=== PATIENT | male | born 1970 | race Caucasian/White ===

== ENCOUNTER 2021-07-09 23:02 | Emergency (ER) | payer SELFPAY ==
--- OUTSIDE RECORDS SUMMARY | 2021-07-09 23:06 | XMS REPORT | Continuity of Care Document ---
:1970 Author Organization [facility] t Address [address] [place] [address] Care Team Providers Name Role Phone Cassandra Estrada Attending Clinician Unavailable Cassandra Estrada Attending Clinician Unavailable Cassandra Estrada Admitting Clinician Unavailable Problems This patient has no known problems. Allergies, Adverse Reactions, Alerts Allergy Allergy Status Severity Reaction(s) Onset Inactive Treating Comm ents Source Name Type Date Date Clinician No Known Drug Active [facility] No Known Drug [facility] No Known [facility] No Known [facility] No Known [facility] No Known Drug [facility] No Known Drug Active [facility] No Known Drug Active [facility] Medications This patient has no known medications. Vital Signs Vital Name Observation Time Observation Value Comments Source Weight Dosing 2019-06-12 21:35:08 Height/Length Measured 2019-06-12 21:31:25 Weight Dosing 2019-06-12 21:28:49 Weight Dosing 2019-06-12 21:17:51 Height/Length Dosing 2019-06-12 21:17:51 Weight Dosing 2021-06-09 08:48:00 68 kg Height/Length Measured 2021-06-09 08:48:00 152.4 cm Height/Length Dosing 2021-06-09 08:48:00 172.72 cm Height/Length Measured 2021-06-09 08:45:29 152.4 cm Height/Length Dosing 2021-06-09 08:45:29 172.72 cm Weight Dosing 2021-06-09 08:45:29 68 kg Height/Length Measured 2021-06-09 08:44:27 152.4 cm Height/Length Dosing 2021-06-09 08:44:27 172.72 cm Weight Dosing 2021-06-09 08:44:27 68 kg Height/Length Measured 2021-06-09 08:44:07 152.4 cm Height/Length Dosing 2021-06-09 08:44:07 172.72 cm Weight Dosing 2021-06-09 08:44:07 68 kg Height/Length Measured 2021-06-09 08:43:39 152.4 cm Height/Length Dosing 2021-06-09 08:43:39 172.72 cm Weight Dosing 2021-06-09 08:43:39 68 kg Height/Length Measured 2021-06-09 08:43:25 152.4 cm Height/Length Dosing 2021-06-09 08:43:25 172.72 cm Weight Dosing 2021-06-09 08:43:25 68 kg Height/Length Measured 2021-06-09 08:43:24 152.4 cm Height/Length Dosing 2021-06-09 08:43:24 172.72 cm Weight Dosing 2021-06-09 08:43:24 68 kg Height/Length Measured 2021-06-09 08:42:54 152.4 cm Height/Length Dosing 2021-06-09 08:42:54 172.72 cm Weight Dosing 2021-06-09 08:42:54 68 kg Height/Length Measured 2021-06-09 08:42:51 152.4 cm Height/Length Dosing 2021-06-09 08:42:51 172.72 cm Weight Dosing 2021-06-09 08:42:51 68 kg Height/Length Measured 2021-06-09 08:42:49 152.4 cm Height/Length Dosing 2021-06-09 08:42:49 172.72 cm Weight Dosing 2021-06-09 08:42:49 68 kg Procedures This patient has no known procedures. Encounters Start End Encounter Admission Attending Care Care Encounter Source Date/Time Date/Time Type Type Clinicians Facility Department ID 2019-06-12 Inpatient 1 Torey Estrada [facility] [id number] 16:23:00 Torey Estrada [id number] 1 [facility] 2019-06-12 2019-06-12 Emergency [facility] [id number] 16:23:00 16:23:00 [facility] Results Test Description Test Time Test Comments Results Result Comments Source HEMOGLOBIN A1c 2021-06-24 07:00:49 Test Item Value Reference Range Interpretation Comme nts HEMOGLOBIN A1c (test code = 83296) 5.3 % 4.2-5.6 CBC W/AUTO DIFF WITH [id number] 06:38:05 Test Item Value Reference Range Interpretation Comments WBC (test code = 7.8 K/UL 3.5-11.0 1001) RBC (test code = 5.05 M/UL 4.50-6.10 1002) HEMOGLOBIN (test code 14.9 G/DL 13.5-17.0 = 1003) HEMATOCRIT (test code 44.6 % 40.0-51.0 = 1004) MCV (test code = 88.3 fL 80.0-99.0 1005) MCH (test code = 29.5 PG 25.0-33.0 1006) MCHC (test code = 33.4 G/DL 31.0-36.0 1007) RDW (test code = 13.0 % 11.5-15.0 1038) NEUTROPHILS (test 54.7 % code = 1008) LYMPHOCYTES (test 35.6 % code = 1010) MONOCYTES (test code 6.3 % = 1011) EOSINOPHILS (test 2.6 % code = 1012) BASOPHILS (test code 0.5 % = 1013) IMMATURE GRANULOCYTES 0.3 % (test code = 1036) NUCLEATED RBCS (test 0.0 /100 See_Comment [Autom ated code = 1065) WBC'S message] The sy stem which generated this result transmitted reference range : 0.0. The refere nce range was not u sed to interpret th is result as normal/abnormal . PLATELET COUNT (test 234 K/UL 130-400 code = 1015) ABSOLUTE NEUTROPHILS 4.25 K/UL 1.50-7.50 (test code = 1066) ABSOLUTE LYMPHOCYTES 2.77 K/UL 1.00-4.00 (test code = 1067) ABSOLUTE MONOCYTES 0.49 K/UL 0.20-1.00 (test code = 1068) ABSOLUTE EOSINOPHILS 0.20 K/UL 0.00-0.50 (test code = 1040) ABSOLUTE BASOPHILS 0.04 K/UL 0.00-0.20 (test code = 1069) ABS IMMATURE 0.02 K/UL 0.00-0.10 GRANULOCYTES (test code = 1020) ABS NUCLEATED RBCS 0.00 K/UL 0.00-0.11 (test code = 91538) COMPREHENSIVE METABOLIC [id number] 05:26:09 Test Item Value Reference Range Interpretation Comments GLUCOSE (test code = 72 MG/DL 70-99 2216) BUN (test code = 13 MG/DL 6-20 2207) CREATININE (test 0.78 MG/DL 0.80-1.40 L code = 2214) eGFR (2020 CKD-EPI) 107 >60 (test code = 00262) ML/MIN/1.73 CALC BUN/CREAT (test 17 RATIO 6-28 code = 2235) SODIUM (test code = 144 MEQ/L 441-804 4227) POTASSIUM (test code 4.0 MEQ/L 3.5-5.4 = 8) CHLORIDE (test code 105 MEQ/L 95-107 = 2215) CARBON DIOXIDE (test 26 MEQ/L 19-31 code = 2206) CALCIUM (test code = 9.8 MG/DL 8.5-10.5 2208) PROTEIN, TOTAL (test 7.3 G/DL 6.1-8.3 code = 2229) ALBUMIN (test code = 4.6 G/DL 3.5-5.2 2200) CALC GLOBULIN (test 2.7 G/DL 1.9-3.7 code = 2240) CALC A/G RATIO (test 1.7 RATIO 1.0-2.6 code = 2234) BILIRUBIN, TOTAL 0.3 MG/DL See_Comment [Automated message] (test code = 2207) The syste m which generated this result transmit david reference range : <=1.2. The refe rence range was not u sed to interpret th is result as normal/abnormal . ALKALINE PHOSPHATASE 69 U/L 40-121 (test code = 2204) AST (test code = 20 U/L 9-50 2217) ALT (test code = 17 U/L 5-50 2218) LIPID [id number] 05:26:09 Test Item Value Reference Range Interpretation Comments CHOLESTEROL (test 241 MG/DL <200 H code = 2210) TRIGLYCERIDES (test 88 MG/DL <150 code = 2232) HDL CHOLESTEROL (test 45 MG/DL >39 code = 2220) CALC LDL CHOL (test 176 MG/DL <100 H NOTE: C ALCULATED LDL code = 2237) IS BASED ON IJEOMA-LUKE METHOD WHICHINCLUDES ADJUSTABLE TRIGLYCERIDE:VL DL CHOLESTEROL RAT IO.THIS FACTOR VARIES B Y MEASURED TRIGLY CERIDE AND NON-HDLCHOL ESTEROL CONCENTRATIONS WITH INCREASED CALCU LATED LDL SEENIN HIGH ER TRIGLYCERIDE OR LOWER NON-HDL SPECIME NS. FOR MOREINFORMATION , SEE CLIENT ANNOUNCE MENT AT [email or web address] RISK RATIO LDL/HDL 3.91 RATIO <3.55 H UN LESS (test code = 2238) OTHERWISE INDICATED, ALL TESTING PER [facility], [place] [facility] [place] [address] LABORATORY DIRE CTOR: BARAK MENDEZ M.D. CLIA NUMBER [id number] CAP ACCREDITATION N O. [id number] RPR [id number] 16:38:24 Test Item Value Reference Range Interpretation Comments RPR Qual (test code = RPR Qual) Non-Reactive Non-Reactive Reactive Control (test code = Reactive Reactive Control) Weak Reactive Control (test Weak Reactive code = Weak Reactive Control) Non-Reactive Control (test code Non-Reactive = Non-Reactive Control) Lot # (test code = Lot #) [id number] Expiration Dt (test code = 03-22-2020 N Expiration Dt) Lipid [id number] 13:20:12 Test Item Value Reference Range Interpretation Comments Cholesterol Total 155 mg/dL 0-200 RISK OF HE ART (test code = DISEASEPublishe d by Cholesterol Total) [place] [employer] Yary lyte Optimal Borderl ine Increased RiskC HOL <200 200-239 >2 40TRIG <150 150-199 >2 00HDL Male >60 <40H DL Female >60 <5 0LDL <100 130-159 >1 60LDL Near optimal is 100-129 Triglycerides (test 91 mg/dL 9-200 code = Triglycerides) HDL (test code = HDL) 40 mg/dL 40-60 LDL (test code = LDL) 97 mg/dL 0-130 The eq uation being used in this calcula tion is LDL = (Chol - H DL) - (Trig / 5) VLDL (test code = 18 mg/dL 5-40 The equati on being used VLDL) in this calcula tion is VLDL = Trig / 5 Chol/HDL (test code = 3.9 ratio 0.0-5.0 Chol/HDL) LDL/HDL Ratio (test 2 N The equa tion being used code = LDL/HDL Ratio) in thi s calculation is LDL/HDL Ratio=L DL Calc/HDL Chol Thyroid Stimulating [id number] 13:20:12 Test Item Value Reference Range Interpretation Comments TSH (test code = TSH) 3.950 mIU/mL 0.270-4.200 Urine Drug [id number] 18:04:09 Test Item Value Reference Range Interpretation Comments Amphetamine Screen Ur Negative Negative (test code = Amphetamine Screen Ur) Barbiturate Screen Ur Negative Negative (test code = Barbiturate Screen Ur) Benzodiazepines Ur (test Negative Negative code = Benzodiazepines Ur) Cocaine Screen Ur (test Negative Negative code = Cocaine Screen Ur) U Methadone Scr (test Negative Negative code = U Methadone Scr) Opiate Screen Ur (test Negative Negative code = Opiate Screen Ur) U PCP Scrn (test code = Negative Negative U PCP Scrn) Cannabinoid Screen Ur Negative Negative (test code = Cannabinoid Screen Ur) U TCA (test code = U Negative Negative The res ults of all TCA) drug screen shawna ts are only preliminar y. Clinical consideration a nd professional ju dgjocy should be appli ed to any drug of abu se test result, particularly wh en preliminary pos itive results are obt ained. Please order a separate confir matory test if desired . Comprehensive Metabolic [id number] 17:55:54 Test Item Value Reference Range Interpretation Comments Sodium Level (test code = Sodium 140.0 mmol/L 135.0-145.0 Level) Potassium Level (test code = 4.0 mmol/L 3.5-5.1 Potassium Level) Chloride Level (test code = 99 mmol/L 98-105 Chloride Level) CO2 (test code = CO2) 31 mmol/L 22-29 H Anion Gap (test code = Anion 10 mmol/L 7-16 Gap) BUN (test code = BUN) 8.90 mg/dL 6.00-20.00 Creatinine Level (test code = 0.70 mg/dL 0.70-1.20 Creatinine Level) BUN/Creat Ratio (test code = 13 N BUN/Creat Ratio) Glucose Level (test code = 83 mg/dL 70-115 Glucose Level) Calcium Level (test code = 9.2 mg/dL 8.3-10.5 Calcium Level) Alk Phos (test code = Alk Phos) 46 U/L 40-129 Bilirubin Total (test code = 0.2 mg/dL 0.1-0.9 Bilirubin Total) Albumin Level (test code = 4.2 g/dL 3.5-5.2 Albumin Level) Protein Total (test code = 7.2 g/dL 6.4-8.3 Protein Total) ALT (test code = ALT) 9 U/L 1-41 AST (test code = AST) 17 U/L 1-40 Globulin (test code = Globulin) 3.0 g/dL 2.9-3.1 A/G Ratio (test code = A/G 1.4 ratio N Ratio) Comprehensive Metabolic [id number] 17:55:54 Test Item Value Reference Range Interpretation Comments Sodium Level (test 140.0 mmol/L 135.0-145.0 code = Sodium Level) Potassium Level 4.0 mmol/L 3.5-5.1 (test code = Potassium Level) Chloride Level (test 99 mmol/L 98-105 code = Chloride Level) CO2 (test code = 31 mmol/L 22-29 H CO2) Anion Gap (test code 10 mmol/L 7-16 = Anion Gap) BUN (test code = 8.90 mg/dL 6.00-20.00 BUN) Creatinine Level 0.70 mg/dL 0.70-1.20 (test code = Creatinine Level) BUN/Creat Ratio 13 N (test code = BUN/Creat Ratio) Glucose Level (test 83 mg/dL 70-115 code = Glucose Level) Calcium Level (test 9.2 mg/dL 8.3-10.5 code = Calcium Level) Alk Phos (test code 46 U/L 40-129 = Alk Phos) Bilirubin Total 0.2 mg/dL 0.1-0.9 (test code = Bilirubin Total) Albumin Level (test 4.2 g/dL 3.5-5.2 code = Albumin Level) Protein Total (test 7.2 g/dL 6.4-8.3 code = Protein Total) ALT (test code = 9 U/L 1-41 ALT) AST (test code = 17 U/L 1-40 AST) Globulin (test code 3.0 g/dL 2.9-3.1 = Globulin) A/G Ratio (test code 1.4 ratio N = A/G Ratio) eGFR AA (test code = >60 N eGFR (e stimated eGFR AA) mL/min/1.73 m2 Glomerular Filtration Rate ) is an estimated va lue, calculated from the patient's serum creatinine usin g the MDRD equation. It is NOT the patient 's actual GFR. The eGFR provides a more clinically usef ul measure of kidn ey disease than se rum creatinine alone.This calculation irineo es sex and race in to account, if the information is provided. If th e race is not provided, and t he patient is -Mariann n, multiply by 1.2 12. If sex is not provided, and t he patient is fema le, multiply by 0.7 42. Results for pat ients <18 years of ag e have not been validated by th e MDRD study and should be interpreted wit h caution. eGFR R esult Interpretation: eGFR > or = 60 is in the Normal RangeeGF R < 60 may mean kid aniket diseaseeGFR < 1 5 may mean kidney failure Rang es recommended by the National Kidney Foundation, http://nkdep.ni h.gov Alcohol [id number] 17:55:54 Test Item Value Reference Range Interpretation Comments Ethanol Level (test <0.00 g/dL 0.00-0.01 Intoxica david 0.080 g/dL code = Ethanol or more Level) Ethanol Inst (test <0 N code = Ethanol Inst) Comprehensive Metabolic [id number] 17:55:54 Test Item Value Reference Range Interpretation Comments Sodium Level (test 140.0 mmol/L 135.0-145.0 code = Sodium Level) Potassium Level 4.0 mmol/L 3.5-5.1 (test code = Potassium Level) Chloride Level (test 99 mmol/L 98-105 code = Chloride Level) CO2 (test code = 31 mmol/L 22-29 H CO2) Anion Gap (test code 10 mmol/L 7-16 = Anion Gap) BUN (test code = 8.90 mg/dL 6.00-20.00 BUN) Creatinine Level 0.70 mg/dL 0.70-1.20 (test code = Creatinine Level) BUN/Creat Ratio 13 N (test code = BUN/Creat Ratio) Glucose Level (test 83 mg/dL 70-115 code = Glucose Level) Calcium Level (test 9.2 mg/dL 8.3-10.5 code = Calcium Level) Alk Phos (test code 46 U/L 40-129 = Alk Phos) Bilirubin Total 0.2 mg/dL 0.1-0.9 (test code = Bilirubin Total) Albumin Level (test 4.2 g/dL 3.5-5.2 code = Albumin Level) Protein Total (test 7.2 g/dL 6.4-8.3 code = Protein Total) ALT (test code = 9 U/L 1-41 ALT) AST (test code = 17 U/L 1-40 AST) Globulin (test code 3.0 g/dL 2.9-3.1 = Globulin) A/G Ratio (test code 1.4 ratio N = A/G Ratio) eGFR AA (test code = >60 N eGFR (e stimated eGFR AA) mL/min/1.73 m2 Glomerular Filtration Rate ) is an estimated va lue, calculated from the patient's serum creatinine usin g the MDRD equation. It is NOT the patient 's actual GFR. The eGFR provides a more clinically usef ul measure of kidn ey disease than se rum creatinine alone.This calculation irineo es sex and race in to account, if the information is provided. If th e race is not provided, and t he patient is -Mariann n, multiply by 1.2 12. If sex is not provided, and t he patient is fema le, multiply by 0.7 42. Results for pat ients <18 years of ag e have not been validated by [facility] MDRD study and should be interpreted wit h caution. eGFR R esult Interpretation: eGFR > or = 60 is in the Normal RangeeGF R < 60 may mean kid aniket diseaseeGFR < 1 5 may mean kidney failure Rang es recommended by the National Kidney Foundation, http://nkdep.ni h.gov eGFR Non-AA (test >60.00 N eGFR (artemio mated code = eGFR Non-AA) mL/min/1.73 m2 Glomer ular Filtration Rate ) is an estimated va lue, calculated from the patient's serum creatinine usin g the MDRD equation. It is NOT the patient 's actual GFR. The eGFR provides a more clinically usef ul measure of kidn ey disease than se rum creatinine alone.This calculation irineo es sex and race in to account, if the information is provided. If th e race is not provided, and t he patient is -Mariann n, multiply by 1.2 12. If sex is not provided, and t he patient is fema le, multiply by 0.7 42. Results for pat ients <18 years of ag e have not been validated by [facility] MDRD study and should be interpreted wit h caution. eGFR R esult Interpretation: eGFR > or = 60 is in the Normal RangeeGF R < 60 may mean kid aniket diseaseeGFR < 1 5 may mean kidney failure Rang es recommended by the National Kidney Foundation, http://nkdep.ni h.gov Complete Blood Count with [id number] 17:33:01 Test Item Value Reference Range Interpretation Comments WBC (test code = WBC) 8.2 x10 4.4-10.5 RBC (test code = RBC) 4.62 x10 4.10-5.70 Hgb (test code = Hgb) 13.8 g/dL 13.4-17.4 Hct (test code = Hct) 42.1 % 38.7-52.0 MCV (test code = MCV) 91.10 fL 80.00-100.00 MCHC (test code = 32.80 g/dL 32.00-37.50 MCHC) RDW CV (test code = 12.4 % 11.5-14.5 RDW CV) MCH (test code = MCH) 29.9 pg 27.0-32.5 Platelets (test code = 165.0 x10 140.0-440.0 Platelets) MPV (test code = MPV) 9.3 fL N Slide Review (test Auto Auto Result cr eated by code = Slide Review) GL_SJM_ SLIDE_REV_AUTO nRBC (test code = 0 N nRBC) NRBC Abs (test code = 0.00 x10 N NRBC Abs) IPF (test code = IPF) 0 % N Automated [id number] 17:33:01 Test Item Value Reference Range Interpretation Comments Neutro Auto (test code = Neutro 68.4 % 36.0-70.0 Auto) Lymph Auto (test code = Lymph Auto) 22.4 % 12.0-44.0 Upson Auto (test code = Upson Auto) 6.4 % 0.0-11.0 Eos, Auto (test code = Eos, Auto) 2.2 % 0.0-7.0 Basophil Auto (test code = Basophil 0.4 % 0.0-2.0 Auto) Neutro Absolute (test code = Neutro 5.6 x10 1.6-7.4 Absolute) Lymph Absolute (test code = Lymph 1.84 x10 .50-4.60 Absolute) Upson Absolute (test code = Upson .53 x10 .00-1.20 Absolute) Eos Absolute (test code = Eos 0.18 x10 0.00-0.74 Absolute) Baso Absolute (test code = Baso 0.03 x10 0.00-0.21 Absolute) IG [id number] 17:33:01 Test Item Value Reference Range Interpretation Comments IG (test code = IG) 0.2 % 0.0-5.0 IG Abs (test code = IG Abs) 0 x10 N
[2021-07-09] MEDS ORDERED: NA CHLORIDE 0.9% 500 ML ONE (23:50)
[2021-07-10 00:16] LABS: Urine Blood Trace-intact (Negative); Urine Glucose Negative (Negative); Urine Protein Negative (Negative); Urine Specific Gravity >=1.030 (1.005-1.030)
[2021-07-10 00:41] LABS: Absolute Lymphocytes (CBC) 1.2 K/uL (0.7-4.9); Hematocrit 42.4 % (39.6-49.0); Lymphocytes % 11.8 % (15.3-44.8); MPV 8.1 fL (7.6-11.3); RBC Red Blood Cell Count 4.75 M/uL (4.33-5.43)
[2021-07-10 00:52] LABS: ALT/SGPT 26 U/L (12-78); AST/SGOT 17 U/L (15-37); Albumin 3.7 g/dL (3.4-5.0); Alkaline Phosphatase 63 U/L (45-117); BUN Blood Urea Nitrogen 23 mg/dL (7-18); Bicarbonate 29 mmol/L (21-32); Bilirubin Direct < 0.1 mg/dL (0-0.2); Bilirubin Total 0.3 mg/dL (0.2-1.0); Glucose Level 101 mg/dL (74-106); Potassium 4.3 mmol/L (3.5-5.1); Protein, Total 7.3 g/dL (6.4-8.2); Sodium Level 143 mmol/L (136-145)
[2021-07-10] MEDS ORDERED: KETOROLAC 30 MG/ML INJ ONE (00:56)
[2021-07-10 01:17] LABS: Urine Bacteria 20-50 /HPF (NONE SEEN); Urine Mucus 2+ /HPF (NONE SEEN); Urine Sperm PRESENT (NONE SEEN)
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
[2021-07-10 04:24] VITALS: BP 114/83; O2SAT 94
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
== END 2021-07-10 02:52 | disposition home or self-care (01) ==
LOC: ER 23:02
DX: S09.90XA Unspecified injury of head, initial encounter (principal); S40.011A Contusion of right shoulder, initial encounter; V03.90XA Pedestrian on foot injured in collision with car, pick-up truck or van, unspecified whether traffic or nontraffic accident, initial encounter
CPT/HCPCS: 36415; 70450; 71260; 72125; 74177; 80048; 80076; 81003; 81015; 85025; 86850; 86900; 86901; 87086; 87088; 96374; 99284; J7040; Q9967

== ENCOUNTER 2021-09-07 16:55 | Emergency (ER) | payer OTHER ==
--- OUTSIDE RECORDS SUMMARY | 2021-09-07 17:11 | XMS REPORT | Continuity of Care Document ---
:1970 Author Organization [facility] t Address [address] [place] [address] Care Team Providers Name Role Phone Cassandra Estrada Attending Clinician Unavailable Cassandra Estrada Attending Clinician Unavailable Cassandra Estrada Admitting Clinician Unavailable Problems This patient has no known problems. Allergies, Adverse Reactions, Alerts Allergy Allergy Status Severity Reaction(s) Onset Inactive Treating Comm ents Source Name Type Date Date Clinician No Known Drug Active [facility] No Known Drug Active [facility] No Known Drug Active [facility] No Known [facility] [place] No [facility] [place] No Known Drug Active [facility] No Known Drug Active [facility] No Known Drug Active [facility] Medications This patient has no known medications. [...] Department ID 2019-06-12 Inpatient 1 Torey Estrada [facility] [id number] 16:23:00 Torey Estrada -[id number] 1 [facility] 2019-06-12 2019-06-12 Emergency [facility] [id number] 16:23:00 16:23:00 [facility] Results Test Description Test Time Test Comments Results Result Comments Source HEMOGLOBIN A1c 2021-06-24 07:00:49 Test Item Value Reference Range Interpretation Comme nts HEMOGLOBIN A1c (test code = 29051) 5.3 % 4.2-5.6 CBC W/AUTO DIFF WITH [id number] 06:38:05 Test Item Value Reference Range Interpretation [...] RBCS 0.00 K/UL 0.00-0.11 (test code = 31127) COMPREHENSIVE METABOLIC [id number] 05:26:09 Test Item Value Reference Range Interpretation Comments GLUCOSE (test code = 72 MG/DL 70-99 2216) BUN (test code = 13 MG/DL 6-20 2207) CREATININE (test 0.78 MG/DL 0.80-1.40 L code = 2214) eGFR (2020 CKD-EPI) 107 >60 (test code = 10477) ML/MIN/1.73 CALC BUN/CREAT (test 17 RATIO 6-28 code = 2235) SODIUM (test code = 144 MEQ/L [phone]) POTASSIUM (test code 4.0 MEQ/L 3.5-5.4 = [...] code = 17 U/L 5-50 2218) LIPID [id number] 05:26:09 Test Item Value Reference Range Interpretation [...] MOREINFORMATION , SEE CLIENT ANNOUNCE MENT AT [email or web address] RISK RATIO LDL/HDL 3.91 RATIO <3.55 H UN LESS (test code = 2238) OTHERWISE INDICATED, ALL TESTING PER FORMED [facility], [place] [address] [facility] [place] [address] LABORATORY DIRE CTOR: BARAK MENDEZ M.D. CLIA NUMBER [id number] CAP ACCREDITATION N O. [id number] RPR [id number] 16:38:24 Test Item Value Reference Range Interpretation Comments RPR Qual (test code = RPR Qual) Non-Reactive Non-Reactive Reactive Control (test code = Reactive Reactive Control) Weak Reactive Control (test Weak Reactive code = Weak Reactive Control) Non-Reactive Control (test code Non-Reactive = Non-Reactive Control) Lot # (test code = Lot #) [id number] N Expiration Dt (test code = 03-22-2020 N Expiration Dt) Lipid [id number] 13:20:12 Test Item Value Reference Range Interpretation Comments Cholesterol Total 155 mg/dL 0-200 RISK OF HE ART (test code = DISEASEPublishe d by Cholesterol Total) [place] [employer] Yary lyte Optimal Borderl ine [...] LDL/HDL Ratio=L DL Calc/HDL Chol Thyroid Stimulating [id number] 13:20:12 Test Item Value Reference Range Interpretation Comments TSH (test code = TSH) 3.950 mIU/mL 0.270-4.200 Urine Drug [id number] 18:04:09 Test Item Value Reference Range Interpretation [...] y. Clinical consideration a nd professional ju dgment should be appli ed to any drug of abu se test result, particularly wh en preliminary pos itive results are obt ained. Please order a separate confir matory test if desired . Comprehensive Metabolic [id number] 17:55:54 Test Item Value Reference Range Interpretation [...] A/G 1.4 ratio N Ratio) Comprehensive Metabolic [id number] 17:55:54 Test Item Value Reference Range Interpretation [...] the National Kidney Foundation, http://nkdep.ni h.gov Alcohol [id number] 17:55:54 Test Item Value Reference Range Interpretation Comments Ethanol Level (test <0.00 g/dL 0.00-0.01 Intoxica david 0.080 g/dL code = Ethanol or more Level) Ethanol Inst (test <0 N code = Ethanol Inst) Comprehensive Metabolic [id number] 17:55:54 Test Item Value Reference Range Interpretation [...] ag e have not been validated by [facility] MDRD study and should be interpreted wit [...] ag e have not been validated by [facility] MDRD study and should be interpreted wit h caution. eGFR R esult Interpretation: eGFR > or = 60 is in the Normal RangeeGF R < 60 may mean kid ankiet diseaseeGFR < 1 5 may mean kidney failure Rang es recommended by the National Kidney Foundation, http://nkdep.ni h.gov Complete Blood Count with [id number] 17:33:01 Test Item Value Reference Range Interpretation [...] code = IPF) 0 % N Automated [id number] 17:33:01 Test Item Value Reference Range Interpretation Comments Neutro Auto (test code = Neutro 68.4 % 36.0-70.0 Auto) Lymph Auto (test code = Lymph Auto) 22.4 % 12.0-44.0 Tyler Auto (test code = Tyler Auto) 6.4 % 0.0-11.0 Eos, Auto (test code = Eos, Auto) 2.2 % 0.0-7.0 Basophil Auto (test code = Basophil 0.4 % 0.0-2.0 Auto) Neutro Absolute (test code = Neutro 5.6 x10 1.6-7.4 Absolute) Lymph Absolute (test code = Lymph 1.84 x10 .50-4.60 Absolute) Tyler Absolute (test code = Tyler .53 x10 .00-1.20 Absolute) Eos Absolute (test code = Eos 0.18 x10 0.00-0.74 Absolute) Baso Absolute (test code = Baso 0.03 x10 0.00-0.21 Absolute) IG [id number] 17:33:01 Test Item Value Reference Range Interpretation Comments IG (test code = IG) 0.2 % 0.0-5.0 IG Abs (test code = IG Abs) 0 x10 N
--- NOTE | 2021-09-07 20:05 | EDPHYS ---
Physician Documentation [facility] Name: Dakotah Torre Age: 51 yrs Sex: Male : 1970 Arrival Date: 09/07/2021 Time: 17:00 Bed 10 Private MD: ED Physician Adriel Santos HPI: 09/07 17:52 This 51 yrs old Male presents to ER via EMS with complaints of Dizziness. pm1 17:52 The patient presents with dizziness. Onset: The symptoms/episode began/occurred today. pm1 Context: just prior to the episode the patient experienced no apparent symptoms. Modifying factors: The symptoms are alleviated by nothing, the symptoms are aggravated by nothing. Associated signs and symptoms: The patient has no apparent associated signs or symptoms, Pertinent negatives: abdominal pain, chest pain, headache, nausea, shortness of breath, vomiting. Severity of symptoms: in the emergency department the symptoms have resolved. The patient has not recently seen a physician. 51-year-old male presents to the ER with complaints of dizziness. Patient started having dizziness and got onto his bicycle and rode to the fire station for transfer to the ER. Patient's dizziness resolved and he is now worried about his bike and would like to get a ride to get back to it. Historical: - Allergies: 18:51 No Known Allergies; ph - Immunization history:: Adult Immunizations up to date. - Social history:: Smoking status: Patient denies any tobacco usage or history of. ROS: 17:52 Constitutional: Negative for fever, chills, and weight loss, Cardiovascular: Negative pm1 for chest pain, palpitations, and edema, Respiratory: Negative for shortness of breath, cough, wheezing, and pleuritic chest pain, Abdomen/GI: Negative for abdominal pain, nausea, vomiting, diarrhea, and constipation, MS/Extremity: Negative for injury and deformity, Skin: Negative for injury, rash, and discoloration. 17:52 Neuro: Positive for dizziness, Negative for headache, numbness, tingling. 17:52 All other systems are negative. Exam: 17:52 Constitutional: This is a well developed, well nourished patient who is awake, alert, pm1 and in no acute distress. Head/Face: Normocephalic, atraumatic. 17:52 Back: No spinal tenderness. No costovertebral tenderness. Full range of motion. Skin: Warm, dry with normal turgor. Normal color with no rashes, no lesions, and no evidence of cellulitis. 17:52 MS/ Extremity: Pulses equal, no cyanosis. Neurovascular intact. Full, normal range of motion. 17:52 Cardiovascular: Exam negative for acute changes, Rate: normal, Rhythm: regular, Pulses: no pulse deficits are appreciated, Heart sounds: normal, normal S1and S2. 17:52 Respiratory: Exam negative for acute changes, respiratory distress, shortness of breath, Breath sounds: are clear throughout. 17:52 Abdomen/GI: Inspection: abdomen appears normal, Palpation: abdomen is soft and non-tender, in all quadrants. 17:52 Neuro: Exam negative for acute changes, Orientation: is normal, Motor: moves all fours, Gait: is steady, at a normal pace, without difficulty. Vital Signs: 18:48 BP 126 / 83; Pulse 86; Resp 18; Temp 97.6; Pulse Ox 100% on R/A; Weight 72.57 kg; ph Height 5 ft. 8 in. (172.72 cm); 20:01 BP 125 / 81; Pulse 69; Resp 17; Pulse Ox 100% on R/A; lg3 18:48 Body Mass Index 24.33 (72.57 kg, 172.72 cm) ph MDM: 17:42 Patient medically screened. pm1 19:49 Data reviewed: vital signs. Data interpreted: Pulse oximetry: on room air is 100 %. pm1 Interpretation: normal. 20:00 ED course: Patient currently without any complaints. Patient reports dizziness that he pm1 previously had is resolved and he would like to return to his bike so that he can go home. Requested patient to at least have an EKG prior to disposition. EKG without any acute findings. Vital signs stable. Will discharge patient to follow-up with his PCP or clinic and instructed return if he has any concerns or return of symptoms. 20:00 Counseling: I had a detailed discussion with the patient and/or guardian regarding: the pm1 historical points, exam findings, and any diagnostic results supporting the discharge/admit diagnosis, the need for outpatient follow up, to return to the emergency department if symptoms worsen or persist or if there are any questions or concerns that arise at home. 09/07 19:39 Order name: EKG; Complete Time: 19:40 pm1 09/07 19:39 Order name: EKG - Nurse/Tech; Complete Time: 20:00 pm1 Administered Medications: No medications were administered Disposition: 21:38 Co-signature as Attending Physician, Adriel Santos DO I was immediately available on-site ms3 in the Emergency Department for consultation in the care of the patient.. Disposition Summary: 09/07/21 20:04 Discharge Ordered Location: Home pm1 Problem: new pm1 Symptoms: are resolved pm1 Condition: Stable pm1 Diagnosis - Dizziness and giddiness pm1 Followup: pm1 - With: Emergency Department - When: As needed - Reason: Recheck today's complaints, Continuance of care, Re-evaluation by your physician Discharge Instructions: - Discharge Summary Sheet pm1 - Dizziness pm1 Forms: - Medication Reconciliation Form pm1 - Thank You Letter pm1 - Antibiotic Education pm1 - Prescription Opioid Use pm1 Signatures: Yvette Guevara RN RN Augusto Patiño NP JUVENILE OFFICER pm1 Adriel Santos DO DO ms3
--- NOTE | 2021-09-07 20:05 | ER ---
Nurse's Notes [facility] Name: Dakotah Torre Age: 51 yrs Sex: Male : 1970 Arrival Date: 09/07/2021 Time: 17:00 Bed 10 Private MD: Diagnosis: Dizziness and giddiness Presentation: 09/07 18:48 Chief complaint: Patient states: Was brought into ED by [facility] for dizziness, pt ph rode his bike to EMS station. VSS, in triage pt states that his dizziness has improved. Denies pain or other symptoms, is concerned about ride home because his bike is at EMS station. Coronavirus screen: Vaccine status: Patient reports receiving the 2nd dose of the covid vaccine. Ebola Screen: No symptoms or risks identified at this time. Initial Sepsis Screen: Does the patient meet any 2 criteria? No. Patient's initial sepsis screen is negative. Does the patient have a suspected source of infection? No. Patient's initial sepsis screen is negative. Risk Assessment: Do you want to hurt yourself or someone else? Patient reports no desire to harm self or others. 18:48 Method Of Arrival: EMS: [facility] 18:48 Acuity: EVA 4 ph 19:40 Onset of symptoms was September 07, 2021. vc1 Triage Assessment: 19:40 General: Appears in no apparent distress. Behavior is calm, cooperative, appropriate vc1 for age. Historical: - Allergies: 18:51 No Known Allergies; ph - Immunization history:: Adult Immunizations up to date. - Social history:: Smoking status: Patient denies any tobacco usage or history of. Screenin:00 Abuse screen: Denies threats or abuse. Nutritional screening: No deficits noted. vc1 Tuberculosis screening: No symptoms or risk factors identified. Fall Risk None identified. Assessment: 19:40 General: Appears in no apparent distress. comfortable, Behavior is appropriate for age. vc1 Pain: Denies pain. Neuro: Level of Consciousness is awake, alert, obeys commands, Oriented to person, place, time, situation, Appropriate for age. 19:40 Neuro: Denies weakness dizziness. Cardiovascular: Denies chest pain, Patient's skin is vc1 warm and dry. Respiratory: Airway is patent Respiratory effort is even, unlabored, Respiratory pattern is regular, symmetrical. GI: No deficits noted. : No deficits noted. Vital Signs: 18:48 BP 126 / 83; Pulse 86; Resp 18; Temp 97.6; Pulse Ox 100% on R/A; Weight 72.57 kg; ph Height 5 ft. 8 in. (172.72 cm); 20:01 BP 125 / 81; Pulse 69; Resp 17; Pulse Ox 100% on R/A; lg3 18:48 Body Mass Index 24.33 (72.57 kg, 172.72 cm) ED Course: 17:00 Patient arrived in ED. mr 17:07 Augusto Baldwin, ELVIS is PHCP. pm1 17:08 Adriel Santos DO is Attending Physician. pm1 18:51 Triage completed. ph 18:51 Arm band placed on Patient notified of wait time. ph 19:40 Patient has correct armband on for positive identification. Call light in reach. vc1 20:10 No provider procedures requiring assistance completed. Patient did not have IV access vc1 during this emergency room visit. Administered Medications: No medications were administered Outcome: 20:04 Discharge ordered by . pm1 20:12 Patient left the ED. vc1 20:12 Discharged to home [address] [employer], ambulated. vc1 20:12 Condition: good 20:12 Discharge instructions given to patient, Instructed on discharge instructions, follow vc1 up and referral plans. Demonstrated understanding of instructions, follow-up care. Signatures: Melisa Sanchez Yvette Guevara RN RN Augusto Baldwin, ELVIS PAINT STOCK CLERK pm1 Yany Gaona RN RN lg3 Odalys Anguiano RN RN vc1
[2021-09-08 02:08] VITALS: TEMP 97.6; O2SAT 100
[2021-09-08 02:10] VITALS: BP 125/81
--- NOTE | 2021-09-08 08:59 | EKG ---
Test Date: 2021-09-07 Test Time: 19:58:54 Car Sales Consultant: MEASUREMENT RESULTS: Intervals: Rate: 69 UT: 128 QRSD: 86 QT: 372 QTc: 398 Gruver: P: 75 UT: 128 QRS: 66 T: 55 INTERPRETIVE STATEMENTS: Normal sinus rhythm Cannot rule out Anterior infarct, age undetermined Abnormal ECG Compared to ECG 02/14/2017 17:43:47 Myocardial infarct finding now present Sinus tachycardia no longer present Electronically Signed On 09-08-21 08:58:14 CDT by Jono Car
== END 2021-09-07 20:12 | disposition home or self-care (01) ==
LOC: ER 16:55
DX: R42 Dizziness and giddiness (principal)
CPT/HCPCS: 93005; 99283

== ENCOUNTER 2023-08-13 21:30 | Emergency (ER) | payer OTHER ==
[2023-08-13] MEDS ORDERED: ACETAMINOPHEN 500 MG TAB ONE (22:17)
[2023-08-13] MEDS ORDERED: HYDROCODONE/APAP 7.5/325 MG TAB ONE (23:43)
[2023-08-13] MEDS ORDERED: BUPIVACAINE 0.5% PF 10 ML VIAL ONE (23:43)
[2023-08-13] MEDS ORDERED: LIDOCAINE 2% MPF 5 ML VIAL ONE (23:44)
--- NOTE | 2023-08-14 01:23 | ER ---
Nurse's Notes [facility] Name: Dakotah Torre Age: 53 yrs Sex: Male : 1970 Arrival Date: 08/13/2023 Time: 21:30 Bed 8 Private MD: Diagnosis: Displaced fracture of proximal phalanx of left little finger;Contusion of other part of head, initial encounter Presentation: 08/12 21:40 Chief complaint: Patient states: fell while playing basketball about 20 mins ago, pt km8 has left 5th finger deformity, small laceration to bridge of nose, and abrasions to face and right hand; denies LOC. Coronavirus screen: Client denies travel out of the [place] in the last 14 days. Ebola Screen: No symptoms or risks identified at this time. Initial Sepsis Screen: Does the patient meet any 2 criteria? No. Patient's initial sepsis screen is negative. Does the patient have a suspected source of infection? No. Patient's initial sepsis screen is negative. Risk Assessment: Do you want to hurt yourself or someone else? Patient reports no desire to harm self or others. Onset of symptoms was August 13, 2023 at 21:20. 21:40 Method Of Arrival: Ambulatory 8 21:40 Acuity: EVA 3 km8 Triage Assessment: 21:42 General: Appears in no apparent distress. Behavior is calm, cooperative. Pain: km8 Complains of pain in left little finger Pain currently is 5 out of 10 on a pain scale. EENT: No signs and/or symptoms were reported regarding the EENT system. Neuro: Level of Consciousness is awake, alert, obeys commands, Oriented to person, place, time, situation, Speech slow to respond at times. Cardiovascular: Denies chest pain, shortness of breath, Patient's skin is warm and dry. Respiratory: Airway is patent Respiratory effort is even, unlabored, Respiratory pattern is regular, symmetrical. GI: No signs and/or symptoms were reported involving the gastrointestinal system. : No signs and/or symptoms were reported regarding the genitourinary system. Derm: No signs and/or symptoms reported regarding the dermatologic system. Skin is intact, is healthy with good turgor, Skin is dry, Skin is pink, warm \T\ dry. normal, Skin temperature is warm. Musculoskeletal: Range of motion: limited in PIP of left little finger Reports pain in left little finger Pain is 5 out of 10 on a pain scale. Injury Description: Deformity sustained to left little finger is dislocated, was sustained less than 30 minutes ago. Historical: - Allergies: 21:42 No Known Allergies; km8 - PMHx: 21:42 None; km8 - PSHx: 21:42 None; km8 - Immunization history:: Client reports receiving the 2nd dose of the Covid vaccine, Flu vaccine is up to date. - Social history:: Smoking status: Patient reports the use of cigarette tobacco products, 1 cigarette. Screenin:56 [facility] ED Fall Risk Assessment (Adult) History of falling in the last 3 months, tm6 including since admission Yes- single mechanical fall (1 pt) Confusion or Disorientation No (0 pts) Intoxicated or Sedated No (0 pts) Impaired Gait No (0 pts) Mobility Assist Device Used No (0 pt) Altered Elimination No (0 pt) Score/Fall Risk Level 0 - 2 = Low Risk Oriented to surroundings, Maintained a safe environment. Abuse screen: Denies threats or abuse. Denies injuries from another. Nutritional screening: No deficits noted. Tuberculosis screening: No symptoms or risk factors identified. Assessment: 21:56 General: Appears in no apparent distress. Behavior is calm, cooperative. Pain: Denies tm6 pain. Neuro: Level of Consciousness is awake, alert, obeys commands, Oriented to person, place, time, situation. Cardiovascular: Capillary refill < 3 seconds Patient's skin is warm and dry. Respiratory: Airway is patent Respiratory effort is even, unlabored, Respiratory pattern is regular, symmetrical. GI: Abdomen is flat, non-distended. GI: No signs and/or symptoms were reported involving the gastrointestinal system. : No signs and/or symptoms were reported regarding the genitourinary system. EENT: No signs and/or symptoms were reported regarding the EENT system. Derm: Wound noted right hand and nose Wound is small scrapes to bridge of nose and palm of right hand. Musculoskeletal: left little finger swollen and bent. 22:03 Musculoskeletal: Reports pain in right knee. tm6 23:23 Reassessment: Patient and/or family updated on plan of care and expected duration. Pain tm6 level reassessed. Patient is alert, oriented x 3, equal unlabored respirations, skin warm/dry/pink. 08/13 01:01 Reassessment: Patient and/or family updated on plan of care and expected duration. Pain tm6 level reassessed. Patient is alert, oriented x 3, equal unlabored respirations, skin warm/dry/pink. Vital Signs: 08/12 21:40 BP 145 / 87; Pulse 84; Resp 16; Temp 97.6(TE); Pulse Ox 99% on R/A; Weight 77.11 kg; km8 Height 5 ft. 8 in. ; Pain 5/10; 23:23 BP 142 / 110; Pulse 78; Pulse Ox 99% on R/A; Pain 0/10; tm6 23:48 BP 125 / 90; Pulse 82; Pulse Ox 95% on R/A; Pain 7/10; tm6 08/13 01:00 BP 137 / 85; Pulse 70; Pulse Ox 97% on R/A; tm6 08/12 21:40 Body Mass Index 25.85 (77.11 kg, 172.72 cm) km8 08/12 21:40 Pain Scale: Adult km8 23:23 Pain Scale: Adult tm6 23:48 Pain Scale: Adult tm6 ED Course: 08/12 21:35 Patient arrived in ED. gm2 21:39 Ayo Cade PA is PHCP. cp 21:39 Derik Cornejo MD is Attending Physician. cp 21:42 Triage completed. km8 21:42 Arm band placed on right wrist. km8 21:56 Emely Anderson, NAZ is Primary Nurse. tm6 21:56 Patient has correct armband on for positive identification. Placed in gown. Bed in low tm6 position. Call light in reach. Side rails up X2. Adult w/ patient. Provided Education on: plan of care. Client placed on continuous cardiac and pulse oximetry monitoring. NIBP monitoring applied. Pulse ox on. NIBP on. Door closed. Noise minimized. Lights dimmed. 21:59 Wound care: to abrasion, located on nose and right hand was cleaned with with normal tm6 saline, Patient tolerated well. 22:48 CT Facial Bones W/O Con In Process Unspecified. EDMS 22:48 CT Head C Spine In Process Unspecified. EDMS 23:02 XRAY Hand LEFT 3 View In Process Unspecified. EDMS 23:02 XRAY Knee LEFT 3 view In Process Unspecified. EDMS 08/13 01:10 XRAY Hand LEFT 3 View In Process Unspecified. EDMS 01:34 Assist provider with fracture care of palmar aspect of middle phalanx of left little jb4 finger Fracture is closed. Obvious deformity is noted. Circulation, motor and sensation is intact. Set up for procedure. Performed by Ayo SILVA Reduced with physical manipulation. Immobilized with preformed splint, Patient tolerated well. Assist provider with reduction of left left little finger using manipulation, Set up for procedure. Performed by Ayo SILVA Immobilized with OCL splint, Patient tolerated well. 01:35 Patient did not have IV access during this emergency room visit. jb4 Administered Medications: 08/12 22:27 Drug: Acetaminophen PO 1000 mg PO once Route: PO; tm6 23:48 Drug: Hydrocodone-Acetaminophen PO (7.5 mg-325 mg) 1 tabs PO once; RASS on ADMIN: tm6 Combtv4, Very Agttd3, Agttd2, Rstlss1, AlertClm0, Drwsy-1, Lt Sdtn-2, Mod Sdtn-3, Dp Sdtn-4, UnArsble-5 Route: PO; 08/13 01:00 Drug: Lidocaine Infiltration (2 %) 5 ml 5 ml Infiltration once; to bedside {Note: given tm6 by PA.} Volume: 5 ml; Route: Infiltration; 01:00 Drug: Bupivacaine Infiltration (0.5 %) 5 ml 10 ml Infiltration once {Note: given by tm6 PA.} Volume: 10 ml; Route: Infiltration; Medication: 08/12 21:56 VIS not applicable for this client. tm6 Outcome: 08/13 01:23 Discharge ordered by . terri 01:35 Discharged to home ambulatory, with family, jb4 01:35 Condition: stable 01:35 Discharge instructions given to patient, Instructed on discharge instructions, follow up and referral plans. medication usage, Demonstrated understanding of instructions, follow-up care, medications, Prescriptions given X 1, 01:36 Patient left the ED. jb4 Signatures: Dispatcher [employer] EDNV Ayo Cade PA PA cp Bryson, James, RN RN jb4 Charmaine Mason 2 Nasra Knowles RN RN km8 Emely Anderson RN RN tm6
--- NOTE | 2023-08-14 01:23 | EDPHYS ---
Physician Documentation [facility] Name: Dakotah Torre Age: 53 yrs Sex: Male : 1970 Arrival Date: 08/13/2023 Time: 21:30 Bed 8 Private MD: ED Physician Derik Cornejo HPI: 08/12 22:15 This 53 yrs old Male presents to ER via Ambulatory with complaints of Finger Injury, cp broken finger. 22:15 Patient is a 53-year-old male who was brought to the emergency department after cp reportedly losing his balance and falling while playing basketball outside. He reports an injury and deformity to his left small finger, abrasions to his face and nose. No observed loss of consciousness and no complaints of chest and abdominal pain. Historical: - Allergies: 21:42 No Known Allergies; km8 - PMHx: 21:42 None; km8 - PSHx: 21:42 None; km8 - Immunization history:: Client reports receiving the 2nd dose of the Covid vaccine, Flu vaccine is up to date. - Social history:: Smoking status: Patient reports the use of cigarette tobacco products, 1 cigarette. ROS: 22:20 Constitutional: Negative for chills, fever, cp 22:20 Neck: Negative for pain with movement, pain at rest, stiffness, cp 22:20 Cardiovascular: Negative for chest pain, 22:20 Respiratory: Negative for shortness of breath, wheezing, 22:20 Abdomen/GI: Negative for abdominal pain, vomiting, diarrhea, constipation, 22:20 Neuro: Negative for altered mental status, headache, loss of consciousness, 22:20 All other systems are negative, Exam: 22:30 Constitutional: The patient appears in no acute distress, alert, awake, cp non-diaphoretic, non-toxic, well developed, well nourished, 22:30 Head/face: Noted is abrasion(s), that are mild, of the forehead, nose and left cheek, cp swelling, that is mild, of the forehead and nose, 22:30 Eyes: Pupils: equal, round, and reactive to light and accomodation, Extraocular movements: intact throughout, Conjunctiva: normal, no exudate, no injection, Lids and lashes: appear normal, bilaterally, 22:30 ENT: External ear(s): are unremarkable, Nose: Nasal septum: deviates to the right, no septal hematoma appreciated, bleeding, is not appreciated, Mouth: Lips: moist, Oral mucosa: pink and intact, moist, Posterior pharynx: Airway: no evidence of obstruction, patent, Dental exam: no acute changes, 22:30 Neck: C-spine: vertebral tenderness, is not appreciated, crepitus, is not appreciated, ROM/movement: pain, is not appreciated, limited range of motion, is not appreciated, 22:30 Chest/axilla: Inspection: normal, Palpation: is normal, no crepitus, no tenderness, 22:30 Cardiovascular: Rate: normal, Rhythm: regular, 22:30 Respiratory: the patient does not display signs of respiratory distress, Respirations: normal, no use of accessory muscles, no retractions, labored breathing, is not present, Breath sounds: are clear throughout, no decreased breath sounds, no stridor, no wheezing, 22:30 Abdomen/GI: Inspection: abdomen appears normal, Palpation: abdomen is soft and non-tender, in all quadrants, 22:30 Back: pain, is absent, ROM is normal, 22:30 Musculoskeletal/extremity: Extremities: grossly normal except: noted in the left hand: small finger swelling, deformity, decreased ROM, ROM: limited active range of motion, in the left small finger, Perfusion: the extremity is normally perfused throughout, the left hand Sensation intact. 22:30 Skin: injury, abrasion(s), small abrasion noted, of the left hand, 22:30 Neuro: Orientation: no acute changes, per family, Mentation: no acute changes, per family, Vital Signs: 21:40 BP 145 / 87; Pulse 84; Resp 16; Temp 97.6(TE); Pulse Ox 99% on R/A; Weight 77.11 kg; km8 Height 5 ft. 8 in. ; Pain 5/10; 23:23 BP 142 / 110; Pulse 78; Pulse Ox 99% on R/A; Pain 0/10; tm6 23:48 BP 125 / 90; Pulse 82; Pulse Ox 95% on R/A; Pain 7/10; tm6 08/13 01:00 BP 137 / 85; Pulse 70; Pulse Ox 97% on R/A; tm6 08/12 21:40 Body Mass Index 25.85 (77.11 kg, 172.72 cm) km8 08/12 21:40 Pain Scale: Adult [facility] 23:23 Pain Scale: Adult tm6 23:48 Pain Scale: Adult tm6 Procedures: 01:00 Splinting: Splint applied to left hand using Orthoglass splint, ulna gutter type. cp applied by tech. Examined by me, post splint application: neurovascular intact, Patient tolerated well. MDM: 08/12 21:50 Patient medically screened. cp 08/13 01:22 Data reviewed: vital signs, nurses notes, radiologic studies, CT scan, plain films. cp 01:22 Differential diagnosis: closed head injury, contusion, fracture, multiple trauma. I cp considered the following discharge prescriptions or medication management in the emergency department Medications were administered in the Emergency Department. See MAR. Counseling: I had a detailed discussion with the patient and/or guardian regarding the historical points, exam findings, and any diagnostic results supporting the discharge/admit diagnosis, radiology results, the need for outpatient follow up, a hand specialist. Response to treatment: the patient's symptoms have mildly improved after treatment, and as a result, I will discharge patient. 08/12 22:12 Order name: XRAY Hand LEFT 3 View cp 08/12 22:12 Order name: XRAY Knee LEFT 3 view cp 08/12 22:12 Order name: CT Facial Bones W/O Con cp 08/12 22:12 Order name: CT Head C Spine cp 08/13 00:36 Order name: XRAY Hand LEFT 3 View cp 08/13 00:12 Order name: Splint - Ulnar Gutter; Complete Time: 01:00 cp Administered Medications: 08/12 22:27 Drug: Acetaminophen PO 1000 mg PO once Route: PO; tm6 23:48 Drug: Hydrocodone-Acetaminophen PO (7.5 mg-325 mg) 1 tabs PO once; RASS on ADMIN: tm6 Combtv4, Very Agttd3, Agttd2, Rstlss1, AlertClm0, Drwsy-1, Lt Sdtn-2, Mod Sdtn-3, Dp Sdtn-4, UnArsble-5 Route: PO; 08/13 01:00 Drug: Lidocaine Infiltration (2 %) 5 ml 5 ml Infiltration once; to bedside {Note: given tm6 by PA.} Volume: 5 ml; Route: Infiltration; 01:00 Drug: Bupivacaine Infiltration (0.5 %) 5 ml 10 ml Infiltration once {Note: given by tm6 PA.} Volume: 10 ml; Route: Infiltration; Disposition: 02:00 Co-signature as Attending Physician, Derik Cornejo MD I reviewed the patient's care rt provided by the Advanced Practice Provider and agree with the diagnosis and treatment plan. Disposition Summary: 08/14/23 01:23 Discharge Ordered Notes: Location: Home cp Problem: new cp Symptoms: have improved cp Condition: Stable cp Diagnosis - Displaced fracture of proximal phalanx of left little finger cp - Contusion of other part of head, initial encounter cp Followup: cp - With: Private Physician - When: 2 - 3 days - Reason: left small finger fracture, hand surgeon Discharge Instructions: - Discharge Summary Sheet cp - Facial or Scalp Contusion cp - Finger Fracture, Adult cp Forms: - Medication Reconciliation Form cp - Thank You Letter cp - Antibiotic Education cp - Prescription Opioid Use cp - Patient Portal Instructions cp - Leadership Thank You Letter cp Prescriptions: - Ibuprofen 800 mg Oral Tablet - take 1 tablet ORAL route every 8 hours As needed take with food; 30 tablet; cp Refills: 0, Product Selection Permitted Signatures: Dispatcher [employer] EDMS Ayo Cade PA PA cp Derik Cornejo MD MD rt Nasra Knowles RN RN km8 Emely Anderson RN RN tm6
[2023-08-14 02:12] VITALS: BP 137/85; TEMP 97.6; O2SAT 97
--- NOTE | 2023-08-15 11:54 | RAD REPORT ---
EXAM DESCRIPTION: XR Left Hand Complete, 3 or More Views CLINICAL HISTORY: The patient is 53 years old and is Male; post reduction TECHNIQUE: Frontal, lateral and oblique views of the left hand. COMPARISON: Radiograph August 13, 2023 FINDINGS: BONES/JOINTS: There has been interval splinting of the fifth digit. There is persistent angulation of the fracture involving the base of the fifth proximal phalanx. No dislocation. SOFT TISSUES: Unremarkable. No radiopaque foreign body. IMPRESSION: There has been interval splinting of the fifth digit. There is persistent angulation of the fracture involving the base of the fifth proximal phalanx. Electronically signed by: Heaven Kate MD 08/14/2023 01:36 AM CDT Due to temporary technical issues with the PACS/Fluency reporting system, reports are being signed by the in house radiologist without review as a courtesy to ensure prompt reporting. The interpreting r adiologist is fully responsible for the content of the report.
--- NOTE | 2023-08-15 12:01 | RAD REPORT ---
EXAM DESCRIPTION: Head C Spine Mpr Wo Con CLINICAL HISTORY: 33-year-old male status post trauma. COMPARISON: 07/10/2021. TECHNIQUE: CT brain without contrast. This exam was performed according to our departmental dose opt imization program which includes use of automated exposure control, adjustment of the mA and/or kV ac cording to patient size and/or use of iterative reconstruction technique. FINDINGS: The ventricles, sulci, and cisterns are symmetric and unremarkable. The al-white matte r differentiation is preserved. There is no mass effect, midline shift, intra- or extra-axial fluid collection/acute hemorrhage. The osseous structures are unremarkable. The paranasal sinuses and mastoid air cells are clear. IMPRESSION: 1. No acute intracranial abnormalities. TECHNIQUE: Cervical spine CT was performed without contrast. Multiplanar reformatted images were pro vided. This exam was performed according to our departmental dose optimization program which includes use of automated exposure control, adjustment of the mA and/or kV according to patient size and/or u se of iterative reconstruction technique. COMPARISON: None. FINDINGS: There is normal alignment of the cervical spine without fracture or subluxation. The facet s are normal in alignment bilaterally. The posterior elements including the spinous processes are int act. Straightening of the cervical spine which may be secondary to positioning for the examination. Morphology and attenuation of the vertebral bodies and intervertebral disk spaces is compatible with degenerative change. Posterior osseous spurring and disc bulge resulting in mild effacement of the ventral thecal sac at C 3-4, C4-5 and C5-6 vertebral levels. The pre-and paravertebral soft tissues are within normal limits. IMPRESSION: 1. Straightening of the cervical spine which may be secondary to positioning for the exa mination versus spasm. 2. No fracture or acute subluxation. Electronically signed by: Tere Tripp MD 08/13/2023 11:19 PM CDT Due to temporary technical issues with the PACS/Fluency reporting system, reports are being signed by the in house radiologist without review as a courtesy to ensure prompt reporting. The interpreting r adiologist is fully responsible for the content of the report.
--- NOTE | 2023-08-15 13:22 | RAD REPORT ---
EXAM DESCRIPTION: Facial Bones W/ Mpr CLINICAL HISTORY: 53-year-old male status post trauma. COMPARISON: None. TECHNIQUE: Maxillofacial CT without contrast. This exam was performed according to our departmental dose optimization program which includes use of automated exposure control, adjustment of the mA and/ or kV according to patient size and/or use of iterative reconstruction technique. FINDINGS: Technically limited examination, particularly through the mandible limiting evaluation for fracture. If there is clinical concern for fracture, repeat imaging of the mandible is recommended. Limited intracranial images demonstrate no evidence of intracranial hemorrhage, mass or edema. The frontal sinuses, frontal-ethmoid recesses, anterior/posterior ethmoids, sphenoid sinuses, and max illary sinuses are well developed and clear. The osteomeatal complexes are patent. The nasal turbinates are within normal limits. The nasal septum is normal. The cribriform plate and lamina papyraceae within normal limits. The osseous structures are unremarkable. The orbits are unremarkable. The optic nerves and globes appear intact. The periorbital soft tissues are within normal limits. IMPRESSION: Technically limited examination, particularly through the mandible limiting evaluation f or fracture. If there is clinical concern for fracture, repeat imaging of the mandible is recommended . Electronically signed by: Tere Tripp MD 08/13/2023 11:10 PM CDT Due to temporary technical issues with the PACS/Fluency reporting system, reports are being signed by the in house radiologist without review as a courtesy to ensure prompt reporting. The interpreting r adiologist is fully responsible for the content of the report.
--- NOTE | 2023-08-15 13:27 | RAD REPORT ---
EXAM DESCRIPTION: Knee Left 3 View CLINICAL HISTORY: 53-year-old male with pain. TECHNIQUE: Three views LEFT knee were obtained in AP, lateral and oblique projections COMPARISON: None. FINDINGS: There is no fracture or dislocation. The joint spaces are preserved. No soft tissue abnorm alities are seen. Sharpening of the tibial spines with tricompartmental osteophytes compatible with d egenerative change. IMPRESSION: No acute radiographic abnormality. Electronically signed by: Tere Tripp MD 08/13/2023 11:10 PM CDT Due to temporary technical issues with the PACS/Fluency reporting system, reports are being signed by the in house radiologist without review as a courtesy to ensure prompt reporting. The interpreting r adiologist is fully responsible for the content of the report.
--- NOTE | 2023-08-15 13:28 | RAD REPORT ---
EXAM DESCRIPTION: Hand Left 3 View CLINICAL HISTORY: 53-year-old male with pain. TECHNIQUE: Three views LEFT hand were obtained in AP, lateral and oblique projections COMPARISON: None. FINDINGS: Fracture through the base of the fifth digit proximal phalanx. The joint spaces are preser carlitos. No soft tissue abnormalities are seen. IMPRESSION: Fracture through the base of the fifth digit proximal phalanx. Electronically signed by: Tere Tripp MD 08/13/2023 11:11 PM CDT Due to temporary technical issues with the PACS/Fluency reporting system, reports are being signed by the in house radiologist without review as a courtesy to ensure prompt reporting. The interpreting r adiologist is fully responsible for the content of the report.
== END 2023-08-14 01:36 | disposition home or self-care (01) ==
LOC: ER 21:30
PROC: 2W3FX1Z Immobilization of Left Hand using Splint (ICD-10-PCS; principal; 2023-08-14)
DX: S62.617A Displaced fracture of proximal phalanx of left little finger, initial encounter for closed fracture (principal); W19.XXXA Unspecified fall, initial encounter; Y93.67 Activity, basketball; F17.210 Nicotine dependence, cigarettes, uncomplicated
CPT/HCPCS: 70450; 72125; 70486; 76377; 73130 ×2; 73562; 99285; 29126; J2001

== ENCOUNTER 2023-09-24 20:07 | Emergency (ER) | payer OTHER ==
--- NOTE | 2023-09-24 20:34 | EDPHYS ---
Physician Documentation [facility] Name: Dakotah Torre Age: 53 yrs Sex: Male : 1970 Arrival Date: 09/24/2023 Time: 20:07 Bed IW4 Private MD: ED Physician Adriel Santos HPI: 09/24 00:21 This 53 yrs old Male presents to ER via Ambulatory with complaints of Flu Symptoms. [facility] 00:21 53-year-old male with past medical history of tardive dyskinesia presents to the [facility] emergency department for runny nose, cough that has been ongoing for 1 week. Patient notes his caretakers was recently diagnosed with pneumonia and is currently on a Z-Juwan. Patient endorses nausea and vomiting. Patient denies pain at this time. Patient denies any alleviating or inciting factors. Historical: - Allergies: 09/23 20:52 No Known Allergies; km8 - PMHx: 20:52 None; km8 - PSHx: 20:52 None; km8 - Immunization history:: Adult Immunizations up to date. - Infectious Disease History:: Denies. - Social history:: Smoking status: Patient denies any tobacco usage or history of. ROS: 09/24 00:23 Neck: Negative for injury, pain, and swelling, Cardiovascular: Negative for chest pain, ms3 and palpitations. MS/Extremity: Negative for injury and deformity, Skin: Negative for injury, rash, and discoloration, Constitutional: Positive for chills, Respiratory: Positive for cough, Exam: 00:23 Constitutional: This is a well developed, well nourished patient who is awake, alert, ms3 and in no acute distress. Head/Face: Normocephalic, atraumatic. Neck: Trachea midline, no cervical lymphadenopathy. Supple, full range of motion without nuchal rigidity, or vertebral point tenderness. No Meningismus. Chest/axilla: Normal chest wall appearance and motion. Nontender with no deformity. Cardiovascular: Regular rate and rhythm with a normal S1 and S2. No gallops, murmurs, or rubs. Normal PMI, no JVD. No pulse deficits. Respiratory: Lungs have equal breath sounds bilaterally, clear to auscultation and percussion. No rales, rhonchi or wheezes noted. No increased work of breathing, no retractions or nasal flaring. Abdomen/GI: Soft, non-tender, with normal bowel sounds. No distension or tympany. No guarding or rebound. No evidence of tenderness throughout. Skin: Warm, dry with normal turgor. Normal color with no rashes, no lesions, and no evidence of cellulitis. MS/ Extremity: Pulses equal, no cyanosis. Neurovascular intact. Full, normal range of motion. Vital Signs: 09/23 20:51 BP 126 / 79; Pulse 102; Resp 16; Temp 99.4(O); Pulse Ox 96% on R/A; Weight 68.04 kg km8 (R); Height 5 ft. 4 in. (R); Pain 5/10; 20:51 Body Mass Index 25.75 (68.04 kg, 162.56 cm) km 20:51 Pain Scale: Adult km8 Jessica Coma Score: 20:54 Eye Response: spontaneous(4). Motor Response: obeys commands(6). Verbal Response: km8 oriented(5). Total: 15. MDM: 20:33 Patient medically screened. ms3 09/24 00:23 Differential Diagnosis: Bronchitis Influenza Upper Respiratory Infection Viral Syndrome ms3 Pneumonia. Data reviewed: vital signs, nurses notes, and as a result, I will discharge patient. I considered the following discharge prescriptions or medication management in the emergency department Patient given prescription for azithromycin. Counseling: I had a detailed discussion with the patient and/or guardian regarding the historical points, exam findings, and any diagnostic results supporting the discharge/admit diagnosis, the need for outpatient follow up, to return to the emergency department if symptoms worsen or persist or if there are any questions or concerns that arise at home. Special discussion: I discussed with the patient/guardian in detail that at this point there is no indication for admission to the hospital. It is understood, however, that if the symptoms persist or worsen the patient needs to return immediately for re-evaluation. Administered Medications: No medications were administered Disposition Summary: 09/24/23 20:33 Discharge Ordered Notes: Location: Home ms3 Condition: Stable ms3 Diagnosis - Cough ms3 - Chills (without fever) ms3 Followup: ms3 - With: Ace Noguera, DO - When: 2 - 3 days - Reason: Recheck today's complaints Discharge Instructions: - Discharge Summary Sheet ms3 - Cough, Adult ms3 Forms: - Medication Reconciliation Form ms3 - Antibiotic Education ms3 - Prescription Opioid Use ms3 - Patient Portal Instructions ms3 - Leadership Thank You Letter ms3 Prescriptions: - azithromycin 250 mg Oral tablet - take 1 dose pack ORAL route as directed on dose pack For 250 mg dose pack: take ms3 500 mg today (day 1), then 250 mg for 4 days (days 2-5); 6 tablet; Refills: 0, Product Selection Permitted - Tessalon Perles 100 mg Oral Capsule - take 1 capsule ORAL route every 8 hours As needed; 15 capsule; Refills: 0, ms3 Product Selection Permitted Signatures: Adriel Santos, DO ms3 Nasra Knowles RN RN km8 Corrections: (The following items were deleted from the chart) 00:23 00:21 53-year-old male with past medical history of tardive dyskinesia presents to the [facility] emergency department for runny nose, cough that has been ongoing for 1 week. Patient notes his is recently diagnosed with pneumonia and is currently on a Z-Juwan. Patient endorses nausea and vomiting. Patient denies pain at this time. Patient denies any alleviating or inciting factors. ms3
--- NOTE | 2023-09-24 21:04 | ER ---
Nurse's Notes [facility] Name: Dakotah Torre Age: 53 yrs Sex: Male : 1970 Arrival Date: 09/24/2023 Time: 20:07 Bed IW4 Private MD: Diagnosis: Cough;Chills (without fever) Presentation: 09/23 20:51 Chief complaint: Patient states: runny nose and cough starting yesterday; denies fever. km8 Coronavirus screen: Client denies travel out of the [place] in the last 14 days. Ebola Screen: No symptoms or risks identified at this time. Initial Sepsis Screen: Does the patient meet any 2 criteria? HR > 90 bpm. No. Patient's initial sepsis screen is negative. Does the patient have a suspected source of infection? No. Patient's initial sepsis screen is negative. Risk Assessment: Do you want to hurt yourself or someone else? Patient reports no desire to harm self or others. Onset of symptoms was September 23, 2023. 20:51 Method Of Arrival: Ambulatory [facility] 20:51 Acuity: EVA 4 km8 Triage Assessment: 20:52 General: Appears in no apparent distress. comfortable, Behavior is cooperative, km8 appropriate for age, restless. Pain: Complains of pain in nose Pain currently is 5 out of 10 on a pain scale. EENT: Reports nasal congestion nasal discharge. Neuro: Level of Consciousness is awake, alert, obeys commands, Oriented to person, place, time, situation. Cardiovascular: Denies chest pain, shortness of breath, Patient's skin is warm and dry. Respiratory: Reports cough that is non-productive, Airway is patent Respiratory effort is even, unlabored, Respiratory pattern is regular, symmetrical. GI: No signs and/or symptoms were reported involving the gastrointestinal system. : No signs and/or symptoms were reported regarding the genitourinary system. Derm: No signs and/or symptoms reported regarding the dermatologic system. Skin is intact, is healthy with good turgor, Skin is dry, Skin is pink, warm \T\ dry. normal, Skin temperature is warm. Musculoskeletal: No signs and/or symptoms reported regarding the musculoskeletal system. Range of motion: intact in all extremities. Historical: - Allergies: 20:52 No Known Allergies; km8 - PMHx: 20:52 None; km8 - PSHx: 20:52 None; km8 - Immunization history:: Adult Immunizations up to date. - Infectious Disease History:: Denies. - Social history:: Smoking status: Patient denies any tobacco usage or history of. Screenin:54 [facility] ED Fall Risk Assessment (Adult) History of falling in the last 3 months, km8 including since admission No falls in past 3 months (0 pts) Confusion or Disorientation No (0 pts) Intoxicated or Sedated No (0 pts) Impaired Gait No (0 pts) Mobility Assist Device Used No (0 pt) Altered Elimination No (0 pt) Score/Fall Risk Level 0 - 2 = Low Risk Oriented to surroundings, Maintained a safe environment, Educated pt \T\ family on fall prevention, incl call for assistance when getting out of bed, Assessed \T\ reinforced patient's understanding of fall precautions. Abuse screen: Denies threats or abuse. Denies injuries from another. Nutritional screening: No deficits noted. Tuberculosis screening: No symptoms or risk factors identified. Assessment: 20:54 Reassessment: see triage assessment. km8 Vital Signs: 20:51 BP 126 / 79; Pulse 102; Resp 16; Temp 99.4(O); Pulse Ox 96% on R/A; Weight 68.04 kg km8 (R); Height 5 ft. 4 in. (R); Pain 5/10; 20:51 Body Mass Index 25.75 (68.04 kg, 162.56 cm) km8 20:51 Pain Scale: Adult km8 Jessica Coma Score: 20:54 Eye Response: spontaneous(4). Motor Response: obeys commands(6). Verbal Response: km8 oriented(5). Total: 15. ED Course: 20:12 Patient arrived in ED. rg4 20:14 Adriel Santos DO is Attending Physician. ms3 20:33 Ace Noguera DO is Referral Physician. ms3 20:52 Triage completed. km8 20:52 Arm band placed on right wrist. km8 20:54 Patient has correct armband on for positive identification. Adult w/ patient. km8 20:54 No provider procedures requiring assistance completed. Patient did not have IV access km8 during this emergency room visit. 21:03 Provided Education on: complete ABX, do not bite tessalon perles. km8 Administered Medications: No medications were administered Medication: 20:54 VIS not applicable for this client. km8 Outcome: 20:33 Discharge ordered by . ms3 21:03 Discharged to home ambulatory, km8 21:03 Condition: good 21:03 Discharge instructions given to patient, roll cutter, Instructed on discharge instructions, follow up and referral plans. medication usage, Demonstrated understanding of instructions, follow-up care, medications, Prescriptions given X 2, 21:04 Patient left the ED. km8 Signatures: Sugar Astudillo Marcus, DO ms3 Nasra Knowles, RN RN km8
[2023-09-24 21:27] VITALS: BP 126/79; TEMP 99.4; O2SAT 96
== END 2023-09-24 21:04 | disposition home or self-care (01) ==
LOC: ER 20:07
DX: R05.9 Cough, unspecified (principal); R68.83 Chills (without fever)
CPT/HCPCS: 99283